=== PATIENT | female | born 1975 | race Caucasian/White ===

== ENCOUNTER 2017-09-18 23:45 | Emergency (ER) | payer OTHER ==
[~2017-09-18] VITALS: Ht 167.6 cm; Wt 99.6 kg
[~2017-09-18 23:45] MED LIST: ALBUTEROL1.25 MG/3 IH; BUPROPION HCL150 M2 PO; CELECOXIB200 MG PO; CETIRIZINE HCL10 M2 PO; ESTRADIOL1 EAC4 TP; GLIPIZIDE XL10 MG PO; HYDROCHLOROTHIA25 MG PO; LEVOTHYROXINE50 MCG PO; LISINOPRIL10 MG PO; LYRICA200 MG PO; METHOCARBAMOL750 MG PO; MULTIVITAMIN W1 EACH PO; NOVOLIN,HU100 UNITS/ SC; VENTOLIN HFA18 GM IH; ZOFRAN8 MG PO
[2017-09-19 01:47] LABS: EOSINOPHIL COUNT 0.3 K/uL (0-0.3); IMMATURE GRANULOCYTE (%) 0.6 % (0.0-0.7); IMMATURE GRANULOCYTE COUNT 0.1 K/uL; INSTRUMENT ABS NEUTROPHIL CT 5.8 K/uL; LYMPHOCYTE COUNT 3.4 K/uL (1.0-2.8); MCH 27.9 PG (29.0-34.0); MCV 84.7 FL (83-99); MEAN PLAT.VOLUME 11.1 uM^3 (9.5-12.4); MONOCYTE (%) 10.8 % (3-12); MONOCYTE COUNT 1.2 K/uL (0-0.8); NEUTROPHIL (%) 53.7 % (45-76); NEUTROPHIL COUNT 5.8 K/uL (1.8-6.4); PLATELET COUNT 316 K/uL (156-360); RBC DIS.WIDTH-CV 14.8 % (11.8-14.6); RBC DIS.WIDTH-SD 45.6 % (39-53); RED BLOOD COUNT 4.37 M/uL (3.80-5.20); WHITE BLOOD COUNT 10.8 K/uL (4.1-10.2)
[2017-09-19 01:56] LABS: CHLORIDE 104 mEq/L (99-109); SODIUM 139 mEq/L (136-147)
[2017-09-19 01:58] LABS: GLUCOSE 194 mg/dL (70-99)
[2017-09-19 02:00] LABS: ANION GAP 12 MEQ/L (2-14)
[2017-09-19 02:02] LABS: GFR ESTIMATE (CALCULATED) > 59 mL/min/
[2017-09-19 02:03] LABS: UREA NITROGEN (BUN) 23 mg/dL (9-23)
[2017-09-19] MEDS ORDERED: PERCOCET 5/31 TABLET PO (02:52)
[2017-09-19 03:06] VITALS: BP 170/100
== END 2017-09-19 03:07 | disposition home or self-care (01) ==
LOC: EME 23:45
PROVIDERS: Emergency Medicine
DX: E11.42 Type 2 diabetes mellitus with diabetic polyneuropathy (principal); E78.5 Hyperlipidemia, unspecified; G89.29 Other chronic pain; I10 Essential (primary) hypertension; J44.9 Chronic obstructive pulmonary disease, unspecified; Z79.4 Long term (current) use of insulin; Z98.890 Other specified postprocedural states; Z79.84 Long term (current) use of oral hypoglycemic drugs
CPT/HCPCS: 73630; 80048; 85025; 93971; 99281; 99284

== ENCOUNTER 2018-01-12 10:23 | Emergency (ER) | payer OTHER ==
[~2018-01-12] VITALS: Ht 172.7 cm; Wt 94.9 kg
[~2018-01-12 10:23] MED LIST changes: +PERCOCET 5/31 TABLET PO
[2018-01-12 10:41] LABS: HEMATOCRIT 37.1 % (36.0-46.0); HEMOGLOBIN 12.1 G/DL (11.9-15.5); MCH 27.9 PG (29.0-34.0); MCHC 32.6 G/DL (30.0-36.0); MCV 85.5 FL (83-99); PLATELET COUNT 292 K/uL (156-360); RBC DIS.WIDTH-CV 14.9 % (11.8-14.6); RBC DIS.WIDTH-SD 46.5 % (39-53); RED BLOOD COUNT 4.34 M/uL (3.80-5.20); WHITE BLOOD COUNT 11.5 K/uL (4.1-10.2)
[2018-01-12 10:52] LABS: ALBUMIN 4.1 g/dL (3.2-4.8); CHLORIDE 102 mEq/L (99-109); POTASSIUM 4.5 mEq/L (3.7-5.4); SODIUM 136 mEq/L (136-147)
[2018-01-12 10:54] LABS: GLUCOSE 375 mg/dL (70-99)
[2018-01-12 10:56] LABS: TOTAL BILIRUBIN 0.1 mg/dL (0.0-1.0)
[2018-01-12 10:58] LABS: ALKALINE PHOSPHATASE 109 IU/L (3-129); CREATININE 1.2 mg/dL (0.6-1.3); GFR ESTIMATE (CALCULATED) 52 mL/min/
[2018-01-12 10:59] LABS: UREA NITROGEN (BUN) 27 mg/dL (9-23)
[2018-01-12 11:00] LABS: AST (GOT) 19 IU/L (2-34)
[2018-01-12 11:01] LABS: ALT (GPT) 20 IU/L (3-49); LIPASE 46 U/L (1.0-51.0)
[2018-01-12 11:28] LABS: APPEARANCE SL.HAZY ((CLEAR)); BILIRUBIN NEGATIVE; BLOOD NEGATIVE; COLOR YELLOW ((YELLOW)); GLUCOSE (STRIP) >=500; KETONES NEGATIVE; LEUKOCYTES LARGE; NITRITE NEGATIVE; PROTEIN (STRIP) 100; SPECIFIC GRAVITY 1.023 (1.000-1.030); UROBILINOGEN 0.2 MG/DL (0.2-1.0)
[2018-01-12 11:30] LABS: QUANTITATIVE HCG < 4.0 MIU/ML
[2018-01-12 11:32] LABS: BACTERIA RARE /HPF; EPITHELIAL CELLS 1+ /HPF; HYALINE CASTS 0-5 /LPF; MUCUS TRACE /LPF; UCUL ADDED? YES; WHITE BLOOD CELLS 20-30 /HPF (0-5)
[2018-01-12] MEDS ORDERED: NAPROSYN500 MG PO (13:38)
[2018-01-12] MEDS ORDERED: KEFLEX500 MG PO (13:38)
[2018-01-12] MEDS ORDERED: PYRIDIUM200 MG PO (13:38)
[2018-01-12 14:30] VITALS: BP 130/76
== END 2018-01-12 14:32 | disposition home or self-care (01) ==
LOC: EME 10:23
DX: N39.0 Urinary tract infection, site not specified (principal); K52.9 Noninfective gastroenteritis and colitis, unspecified; M79.671 Pain in right foot; K80.20 Calculus of gallbladder without cholecystitis without obstruction; E11.42 Type 2 diabetes mellitus with diabetic polyneuropathy; Z79.4 Long term (current) use of insulin; E78.5 Hyperlipidemia, unspecified; I10 Essential (primary) hypertension; J44.9 Chronic obstructive pulmonary disease, unspecified
CPT/HCPCS: 73630; 74177; 80053; 81003; 83690; 84702; 85027; 87086; 99281; 99285; J1885; J2405; J7030

== ENCOUNTER 2018-03-26 04:58 | Emergency (ER) | payer OTHER ==
[~2018-03-26 04:58] MED LIST changes: +KEFLEX500 MG PO; +NAPROSYN500 MG PO; +PYRIDIUM200 MG PO
[2018-03-26 05:29] LABS: HEMATOCRIT 37.8 % (36.0-46.0); HEMOGLOBIN 12.1 G/DL (11.9-15.5); MCH 26.7 PG (29.0-34.0); MCV 83.4 FL (83-99); PLATELET COUNT 290 K/uL (156-360); RBC DIS.WIDTH-CV 14.7 % (11.8-14.6); RBC DIS.WIDTH-SD 44.3 % (39-53); RED BLOOD COUNT 4.53 M/uL (3.80-5.20); WHITE BLOOD COUNT 20.5 K/uL (4.1-10.2)
[2018-03-26 05:37] LABS: AMYLASE 25 IU/L (1-118); CHLORIDE 99 mEq/L (99-109); SODIUM 132 mEq/L (136-147)
[2018-03-26 05:42] LABS: SERUM ETHYL ALCOHOL < 10 mg/dL
[2018-03-26 05:43] LABS: GFR ESTIMATE (CALCULATED) > 59 mL/min/; UREA NITROGEN (BUN) 23 mg/dL (9-23)
[2018-03-26 05:46] LABS: LIPASE 85 U/L (1.0-51.0)
[2018-03-26 05:47] LABS: GLUCOSE 524 mg/dL (70-99)
[2018-03-26 05:54] LABS: QUANTITATIVE HCG < 4.0 MIU/ML
[2018-03-26 06:35] LABS: BASOPHIL (%) 0.4 % (0-1); BASOPHIL COUNT 0.1 K/uL (0-0.1); EOSINOPHIL (%) 1.3 % (0-5); EOSINOPHIL COUNT 0.3 K/uL (0-0.3); IMMATURE GRANULOCYTE (%) 3.2 % (0.0-0.7); LYMPHOCYTE (%) 17.7 % (15-42); LYMPHOCYTE COUNT 3.6 K/uL (1.0-2.8); MONOCYTE (%) 7.6 % (3-12); MONOCYTE COUNT 1.6 K/uL (0-0.8); NEUTROPHIL (%) 69.8 % (45-76); NEUTROPHIL COUNT 14.3 K/uL (1.8-6.4)
== END 2018-03-26 09:36 | disposition short-term general hospital (02) ==
LOC: TRA 04:58
PROVIDERS: Emergency Medicine
DX: S22.31XA Fracture of one rib, right side, initial encounter for closed fracture (principal); S32.059A Unspecified fracture of fifth lumbar vertebra, initial encounter for closed fracture; S32.10XA Unspecified fracture of sacrum, initial encounter for closed fracture; S32.402A Unspecified fracture of left acetabulum, initial encounter for closed fracture; S72.052A Unspecified fracture of head of left femur, initial encounter for closed fracture; S72.002A Fracture of unspecified part of neck of left femur, initial encounter for closed fracture; S06.9X1A Unspecified intracranial injury with loss of consciousness of 30 minutes or less, initial encounter; R40.2412 Glasgow coma scale score 13-15, at arrival to emergency department; S40.811A Abrasion of right upper arm, initial encounter; S80.812A Abrasion, left lower leg, initial encounter; S80.212A Abrasion, left knee, initial encounter; S20.219A Contusion of unspecified front wall of thorax, initial encounter; M79.632 Pain in left forearm; R10.9 Unspecified abdominal pain; Z23 Encounter for immunization; V49.50XA Passenger injured in collision with unspecified motor vehicles in traffic accident, initial encounter; Y92.410 Unspecified street and highway as the place of occurrence of the external cause; J45.909 Unspecified asthma, uncomplicated; I10 Essential (primary) hypertension; E11.9 Type 2 diabetes mellitus without complications; Z79.4 Long term (current) use of insulin; E66.01 Morbid (severe) obesity due to excess calories; Z90.722 Acquired absence of ovaries, bilateral; Z79.890 Hormone replacement therapy
CPT/HCPCS: 70450; 71260; 72125; 72129; 72132; 73060; 73090; 73501; 73552; 73590; 74177; 80048; 81003; 82150; 83690; 84702; 85025; 86850; 86900; 86901; 90832; 99281; 99285; G0480; J2405; J3010